=== PATIENT | female | born 2000 | race Caucasian/White ===

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

== ENCOUNTER 2024-09-16 20:51 | Emergency (ER) | payer OTHER ==
[2024-09-16 21:09] VITALS: BP 131/71; PULSE 91; RESP 18; TEMP 99; BMI 23.3
[2024-09-16] MEDS ORDERED: ONDANSETRON 4 MG TABLET PO ONE (21:46)
[2024-09-16] MEDS ORDERED: IBUPROFEN 400 MG TABLET (FP) PO ONE (21:46)
[2024-09-16] MEDS: ONDANSETRON *ODT* 4 MG TABLET SL ONE (21:47)
[2024-09-16] MEDS: IBUPROFEN 400 MG TABLET (FP) PO ONE (21:47)
== END 2024-09-16 22:06 | disposition home or self-care (01) ==
LOC: JER 20:51
DX: S06.0X0A Concussion without loss of consciousness, initial encounter (principal); R11.2 Nausea with vomiting, unspecified; R51.9 Headache, unspecified; R05.9 Cough, unspecified; H53.149 Visual discomfort, unspecified; V00.311A Fall from snowboard, initial encounter
CPT/HCPCS: 99283-25; Q0162